=== PATIENT | female | born 1990 | race Caucasian/White ===

== ENCOUNTER 2020-10-25 08:02 | Emergency (ER) | payer OTHER, SELFPAY ==
--- NOTE | 2020-10-25 08:10 | ED.BACK ---
HPI - Back Pain/Injury General Chief Complaint: Back Pain/Injury Stated Complaint: BACK PAIN Time Seen by Provider: 10/25/20 08:10 Source: patient and RN notes reviewed Mode of arrival: ambulatory Limitations: no limitations History of Present Illness HPI Narrative: 30 yo female presents to the [facility] for right back pain for 1 week. Around the mid to lower scapula right side. No chest pain or shortness of breath. Denies fevers. Denies any injury. Pain is worse with movement. Denies any heavy pushing pulling or lifting. States that she has seen her chiropractor twice with no relief, states it actually made it worse. Has tried ibuprofen along with hot and cold packs with no relief. States the pain was 10 out of 10 last night while sleeping and woke her up out of her sleep felt like her muscle around her scapula was spasming. History of lower back pain. Denies any other chronic history. Denies surgical history Related Data Home Medications Medication Instructions Recorded Confirmed lactobacillus combination no.4 3 3,000 mmu cells PO DAILY 06/29/19 billion cell capsule Allergies Allergy/AdvReac Type Severity Reaction Status Date / Time No Known Allergies Allergy Mild Verified 09/07/19 13:40 Review of Systems Review of Systems: Narrative: CONSTITUTIONAL: Denies fever, chills, or sweats. CARDIOVASCULAR: Denies chest pain, palpitations, or edema. RESPIRATORY: Denies cough or dyspnea. SKIN: Denies rash or itching. MUSCULOSKELETAL: Reports right-sided lower scapula pain. Denies joint pain NEUROLOGIC: Denies headache, numbness, or weakness. PSYCHIATRIC: Denies anxiety or depression. All other systems reviewed are negative, except as documented in HPI. [facility] Past Medical History Medical History (Updated 10/25/20 @ 08:24 by Octavia Enamorado) History of PCOS Polycystic ovarian syndrome Vaginal discharge Surgical History Surgical History History of cholecystectomy [place] teeth removed Family History Family History Grandparent Family history of congestive heart failure Mother Hypertension, Onset Age: 49 Patient's mother is in good health Social History Social History Smoking status: Heavy tobacco smoker Second hand tobacco smoke exposure: Yes Alcohol intake: current Comments At the time of my signature, I reviewed and agree with the nursing past medical, surgical, social, and family history. There is no relevant family history pertinent to the patient complaint. Exam Narrative: Exam Narrative: GENERAL: This is a well-nourished, well-developed patient, in no apparent distress. HEAD: normocephalic, atraumatic. EYES: PERRL. Sclera clear/white. Vision is grossly intact. EARS: External ears normal NECK: Neck supple, non-tender. CARDIOVASCULAR: Regular rate and rhythm without murmurs, gallops, or rubs. RESPIRATORY: Clear to auscultation. Breath sounds equal bilaterally. No wheezes, rales, or rhonchi. NEURO: awake, alert, and oriented to person, place and time. There were no obvious focal neurologic abnormalities. EXTREMITIES: No joint tenderness, effusion, or edema noted. No calf tenderness. Negative Homans sign bilaterally. BACK: Nontender without deformity. No CVA tenderness. Point tenderness mid to lower scapula. Able to reproduce muscle spasming with rotation of the right arm. Has full range of motion. Walks with a normal gait. No numbness or tingling in extremities. No loss or retention of bowel or bladder. No neurologic deficits noted. Back/Spine/Pelvis: Back/spine/pelvis image: 1. Tenderness to palpation. Pain increases with anterior and lateral arm movements above 90 degrees. Course Vital Signs Vital signs: Vital Signs Temperature 96.6 F L 10/25/20 08:15 Pulse Rate 109 H 10/25/20 08:15 Respiratory Rate 16 10/25/20 08:1
[2020-10-25 08:15] VITALS: BP 145/87; PULSE 109; RESP 16; TEMP 35.9; O2SAT 100
== END 2020-10-25 08:31 | disposition home or self-care (01) ==
PROVIDERS: Emergency Provider Nurse Practitioner
DX: M62.830 Muscle spasm of back (principal); F17.200 Nicotine dependence, unspecified, uncomplicated; E28.2 Polycystic ovarian syndrome
CPT/HCPCS: 99213; G0463

== ENCOUNTER 2020-12-21 09:46 | Outpatient (CLI) | payer OTHER, SELFPAY ==
[2020-12-21 10:10] LABS: Basophils Percent Auto 0.4 % (0.2-1.2); Eosinophils Absolute Auto 0.2 K/mm3 (0-0.3); Eosinophils Percent Auto 1.8 % (0-4.4); Hematocrit 37.7 % (37.0-47.0); Hemoglobin 13.3 g/dL (12.0-15.0); Immature Granulocyte Absolute 0.05 K/mm3 (0.00-0.031); Immature Granulocyte Percent A 0.5 % (0-0.5); Lymphocytes Absolute Auto 2.57 K/mm3 (0.9-3.2); Lymphocytes Percent Auto 23.3 % (18.3-44.2); Mean Corpuscular HGB Conc 35.3 g/dl (32-36); Mean Corpuscular Hemoglobin 32.9 pg (26-34); Mean Corpuscular Volume 93.3 fl (80-100); Mean Platelet Volume 11.8 fl (7.4-10.4); Monocytes Absolute Auto 0.8 K/mm3 (0.1-0.6); Monocytes Percent Auto 7.3 % (2.6-8.5); Neutrophils Absolute Auto 7.4 K/mm3 (1.3-6.7); Neutrophils Percent Auto 66.7 % (45.5-73.1); Platelet Count Result 222 k/mm3 (150-375); Red Blood Count 4.04 M/mm3 (4.2-5.4); Red Cell Distribution Width 11.7 % (11.5-14.5)
[2020-12-21 10:54] LABS: Thyroid Stimulating Hormone 0.798 uIU/mL (0.465-4.680)
[2020-12-21 11:03] LABS: HIV 1/2 Ab P24 Ag Result Negative (Negative)
[2020-12-21 13:09] LABS: Hepatitis B Surface Antigen Negative (Negative)
[2020-12-21 13:25] LABS: Hepatitis C Virus Antibody Negative (Negative)
[2020-12-21 14:06] LABS: Vitamin D 25 Hydroxy 32.3 ng/mL
[2020-12-22 08:30] LABS: Rapid Plasma Reagin Non-Reactive (NonReactive)
[2020-12-26 18:43] LABS: Hemoglobin 13.1 g/dL (11.7-15.5); MCH 33.2 pg (27.0-33.0); RDW 13.2 % (11.0-15.0); Red Blood Cell Count 3.94 Mill/uL (3.80-5.10)
== END 2020-12-21 09:47 | disposition home or self-care (01) ==
LOC: ANHLAB 09:51
PROVIDERS: Visit Provider Student in an Organized Health Care Education/Training Program
DX: Z34.90 Encounter for supervision of normal pregnancy, unspecified, unspecified trimester (principal); Z3A.00 Weeks of gestation of pregnancy not specified
CPT/HCPCS: 36415; 82306; 83021; 84443; 85025; 86592; 86703; 86762; 86787; 86803; 86850; 86900; 86901; 87340; G0432

== ENCOUNTER 2021-04-21 09:26 | Outpatient (CLI) | payer OTHER, SELFPAY ==
[2021-04-21 11:43] LABS: Basophils Percent Auto 0.3 % (0.2-1.2); Eosinophils Absolute Auto 0.2 K/mm3 (0-0.3); Eosinophils Percent Auto 1.7 % (0-4.4); Hematocrit 35.4 % (37.0-47.0); Hemoglobin 12.1 g/dL (12.0-15.0); Immature Granulocyte Absolute 0.11 K/mm3 (0.00-0.031); Immature Granulocyte Percent A 0.9 % (0-0.5); Lymphocytes Absolute Auto 2.26 K/mm3 (0.9-3.2); Lymphocytes Percent Auto 18.6 % (18.3-44.2); Mean Corpuscular HGB Conc 34.2 g/dl (32-36); Mean Corpuscular Hemoglobin 32.4 pg (26-34); Mean Corpuscular Volume 94.7 fl (80-100); Mean Platelet Volume 12.3 fl (7.4-10.4); Monocytes Absolute Auto 0.6 K/mm3 (0.1-0.6); Monocytes Percent Auto 4.8 % (2.6-8.5); Neutrophils Percent Auto 73.7 % (45.5-73.1); Platelet Count Result 185 k/mm3 (150-375); Red Blood Count 3.74 M/mm3 (4.2-5.4); Red Cell Distribution Width 12.7 % (11.5-14.5); White Blood Count 12.2 K/mm3 (4.5-10.0)
[2021-04-21 12:12] LABS: Glucose 1 Hour PP 50gm Dose 226 mg/dL
== END 2021-04-21 09:27 | disposition home or self-care (01) ==
PROVIDERS: Visit Provider Student in an Organized Health Care Education/Training Program
DX: Z34.93 Encounter for supervision of normal pregnancy, unspecified, third trimester (principal); Z3A.27 27 weeks gestation of pregnancy
CPT/HCPCS: 36415; 82947; 85025

== ENCOUNTER 2021-05-05 11:01 | Outpatient (CLI) | payer OTHER, SELFPAY ==
[2021-05-05 12:00] LABS: Hematocrit 35.5 % (37.0-47.0); Hemoglobin 12.5 g/dL (12.0-15.0); Mean Corpuscular HGB Conc 35.2 g/dl (32-36); Mean Corpuscular Hemoglobin 33.1 pg (26-34); Mean Corpuscular Volume 93.9 fl (80-100); Mean Platelet Volume 12.1 fl (7.4-10.4); Platelet Count Result 199 k/mm3 (150-375); Red Blood Count 3.78 M/mm3 (4.2-5.4); Red Cell Distribution Width 12.9 % (11.5-14.5); White Blood Count 12.8 K/mm3 (4.5-10.0)
[2021-05-05 12:16] LABS: Alanine Aminotransferase 44 U/L (4-35); Albumin Level 4.3 g/dL (3.5-5.1); Alkaline Phosphatase 74 U/L (38-126); Anion Gap 13 mmol/L (8-16); Aspartate Amino Transferase 68 U/L (14-36); Bilirubin,Total 0.4 mg/dL (0.2-1.3); Blood Urea Nitrogen 11 mg/dL (7-17); Calcium 9.4 mg/dL (8.4-10.2); Carbon Dioxide 22 mmol/L (22-30); Chloride 101 mmol/L (98-107); Estimated Glomerular Filt Rate > 60; Glucose 137 mg/dL (65-110); Lactate Dehydrogenase 394 U/L (313-618); Potassium 3.6 mmol/L (3.4-5.0); Sodium 136 mmol/L (137-145); Uric Acid 6.8 mg/dL (2.5-7.5)
[2021-05-05 15:47] LABS: Total Volume 24 Hour Urine 3100 ml
[2021-05-05 15:48] LABS: Specific Gravity Ur 1.011; Total Volume 24 Hour Urine 3100 ml
[2021-05-05 15:56] LABS: Total Protein Urine 24 Hr 465 mg/24hr (28-141); Total Protein Urine Random 15 mg/dL
[2021-05-05 15:57] LABS: Creatinine 24 Hour Urine 1.3 gm/24 (0.8-1.8); Creatinine Urine 43.5 mg/dL
== END 2021-05-05 11:02 | disposition home or self-care (01) ==
PROVIDERS: Visit Provider Student in an Organized Health Care Education/Training Program
DX: O13.9 Gestational [pregnancy-induced] hypertension without significant proteinuria, unspecified trimester (principal); Z3A.00 Weeks of gestation of pregnancy not specified
CPT/HCPCS: 36415; 80053; 81050; 82570; 83615; 84156; 84550; 85027; 87086; 87088

== ENCOUNTER 2021-05-11 09:15 | Outpatient (RCR) | payer OTHER, SELFPAY ==
[2021-05-08 11:22] VITALS: BMI 36.3
[2021-05-08 11:23] VITALS: BMI 36.3
== END 2021-07-23 09:35 | disposition home or self-care (01) ==
LOC: ANHDMC 09:15
PROVIDERS: Visit Provider Student in an Organized Health Care Education/Training Program
DX: O24.419 Gestational diabetes mellitus in pregnancy, unspecified control (principal); Z3A.00 Weeks of gestation of pregnancy not specified; Z71.3 Dietary counseling and surveillance; Z71.89 Other specified counseling
CPT/HCPCS: 97802; G0108

== ENCOUNTER 2021-05-15 11:49 | Outpatient (CLI) | payer OTHER, SELFPAY ==
--- NOTE | ~2021-05-15 | US_ITS ---
US OB BPP wo non-stress DATE: 05/15/2021 13:00 INDICATION: Elevated blood pressure. Gestational diabetes mellitus. TECHNIQUE: Real-time imaging and Doppler analysis COMPARISON: None FINDINGS: Live single intrauterine gestation, fetus in longitudinal lie, vertex presentation. h eart rate of 182 bpm. Anterior placenta. BIOPHYSICAL PROFILE reported by tube test technician: breathin out of 2 movement: 2 out of 2 tone: 2 out of 2 Amniotic fluid pocket: 2 out of 2 Total score: 8 out of 8 IMPRESSION: Normal biophysical profile score of 8 out of 8 Reviewed, dictated and finalized at Location [facility]. Reviewed, dictated and finalized at location B.
[2021-05-15 12:10] VITALS: BP 127/78; PULSE 98
[2021-05-15 12:16] VITALS: BP 127/85; PULSE 96
[2021-05-15 12:31] VITALS: BP 117/64; PULSE 88
--- NOTE | 2021-05-15 12:32 | PC.NURSE ---
Pt here for lab work and BPP. Pt states she has been diagnosed with Gestational Diabetes and has had high blood pressure. To room 112 ambulatory, Lab work drawn and sent to lab. BPP ordred. ENRIQUETA and KADENO applied.
[2021-05-15 12:40] LABS: Basophils Percent Auto 0.3 % (0.2-1.2); Eosinophils Absolute Auto 0.2 K/mm3 (0-0.3); Eosinophils Percent Auto 1.2 % (0-4.4); Hemoglobin 12.3 g/dL (12.0-15.0); Immature Granulocyte Absolute 0.16 K/mm3 (0.00-0.031); Immature Granulocyte Percent A 1.1 % (0-0.5); Lymphocytes Percent Auto 17.7 % (18.3-44.2); Mean Corpuscular HGB Conc 34.2 g/dl (32-36); Mean Corpuscular Hemoglobin 31.9 pg (26-34); Mean Corpuscular Volume 93.5 fl (80-100); Mean Platelet Volume 12.7 fl (7.4-10.4); Monocytes Absolute Auto 1.1 K/mm3 (0.1-0.6); Monocytes Percent Auto 7.6 % (2.6-8.5); Neutrophils Absolute Auto 10.6 K/mm3 (1.3-6.7); Neutrophils Percent Auto 72.1 % (45.5-73.1); Platelet Count Result 214 k/mm3 (150-375); Red Blood Count 3.85 M/mm3 (4.2-5.4); Red Cell Distribution Width 12.6 % (11.5-14.5); White Blood Count 14.7 K/mm3 (4.5-10.0)
--- NOTE | 2021-05-15 12:40 | PC.NURSE ---
To ultrasound per wheelchair.
[2021-05-15 12:52] LABS: Creatinine Urine 82.9 mg/dL; Total Protein Urine Random 6 mg/dL; Ur Ttl Prot Creatinine Ratio 0.07 mg/mg (0-0.20)
[2021-05-15 12:53] LABS: Add Urine Microscopic? YES; Appearance Urine Clear (Clear); Bacteria Urine Trace /hpf; Bilirubin Urine Negative (Negative); Blood Urine Negative (Negative); Color Urine Yellow (Yellow); Glucose Urine UA Negative (Negative); Ketones Urine Negative (Negative); Leukocyte Esterase Ur Negative LEU/UL (NEGATIVE); Mucus Urine Rare /lpf; Nitrate Urine Negative (Negative); Protein Urine 1+ mg/dL (Negative); RBC Urine 0-2 /hpf (0-2); Specific Grav Ur 1.023 (1.001-1.035); Squamous Epithelial Cell Urine Many /hpf (Few); Urobilinogen Urine Negative mg/dL (<2.0)
[2021-05-15 13:05] LABS: Alanine Aminotransferase 41 U/L (4-35); Albumin Level 4.3 g/dL (3.5-5.1); Alkaline Phosphatase 81 U/L (38-126); Anion Gap 10 mmol/L (8-16); Aspartate Amino Transferase 50 U/L (14-36); Bilirubin,Total 0.3 mg/dL (0.2-1.3); Blood Urea Nitrogen 9 mg/dL (7-17); Calcium 9.2 mg/dL (8.4-10.2); Carbon Dioxide 22 mmol/L (22-30); Chloride 104 mmol/L (98-107); Estimated Glomerular Filt Rate > 60; Glucose 64 mg/dL (65-110); Potassium 4.1 mmol/L (3.4-5.0); Sodium 136 mmol/L (137-145); Uric Acid 5.5 mg/dL (2.5-7.5)
[2021-05-15 13:11] VITALS: BP 133/80; PULSE 99
[2021-05-15 13:16] VITALS: BP 110/65; PULSE 97
[2021-05-15 13:30] VITALS: BP 110/65; PULSE 88
== END 2021-05-15 13:40 | disposition home or self-care (01) ==
LOC: ANHOBOP 11:55 → ANHOBPP 11:59
PROVIDERS: Visit Provider Student in an Organized Health Care Education/Training Program
DX: O13.9 Gestational [pregnancy-induced] hypertension without significant proteinuria, unspecified trimester (principal); Z3A.00 Weeks of gestation of pregnancy not specified
CPT/HCPCS: 36415; 59025; 76819; 80053; 81001; 82570; 84156; 84550; 85025; 87086; 87088; 99199

== ENCOUNTER 2021-12-07 01:38 | Day surgery (SDC) | payer OTHER, SELFPAY ==
[2021-11-30 15:03] VITALS: BMI 35.7
--- NOTE | 2021-11-30 15:26 | PC.NURSE ---
Report to the Outpatient Waiting Room, entrance under the green pavilion located off [facility], at time 0730_ on date 12/07/21 . OR Time: 0930 . - You and your visitor will be asked a series of questions to screen for COVID 19 for your protection. - Only one visitor is allowed at this time. - The patient visitor is requested to leave or wait in car when not with patient. - A mask is required within the hospital. Patients may have clear liquids (water, carbonated beverages, clear teas, apple juice) until 3 hours prior to surgery with a maximum of 20 ounces. - No food from midnight until time of surgery - Take the following medications with a SIP of water the morning of surgery: __N/A Medications to discontinue per physician N/A Date to take last dose N/A Please no make-up, nail wolof, hairspray, perfume, deodorant, or body powder the day of surgery. No jewelry (including any body piercings) or valuables the day of surgery, leave them at home. Please take a shower or bath the night before, or the morning of, surgery with an antibacterial soap. Wear comfortable, loose fitting clothing. Children are encouraged to wear pajamas. - Jewelry must be removed prior to entering the operating room. Rings and piercings that are not removed may be cut off. - The hospital will not accept responsibility for valuables. - Please leave all valuables, including medications, at home the day of surgery. If you are going home after surgery, a licensed concrete mixing truck driver must drive you home. - NO public transportation without another adult. - We recommend that an adult stay with you for 24 hours following discharge. - We also recommend that you do not drive, make important decision, drink alcoholic beverages, or take any drugs that were not prescribed by your health care provider for at least 24 hours after your discharge time. For Pediatric surgeries, we recommend two adults accompany the child home (only one inside the building at this time). Follow any additional instructions given to you from your surgeon. If you or anyone in your household have experienced Covid symptoms in the past week, please notify your surgeon or the nurse liaison at the phone number below for possible testing. Telephone instructions given to KRISTOPHERNancyand asked if any additional questions and then verbalized understanding. Patient advised to call surgeon office or pre surgery nurse liaison [phone] if any additional questions.
--- NOTE | 2021-12-06 16:49 | WPDANESEPPF ---
Anes - Initial Pre Proc Eval Procedure: Operation Date: 12/07/21 11:00 Proposed Procedures p Loop Electrical Excision Procedure - Gris Wilhelm MD Date/Time: 12/06/21 16:49 Surgeon: Gris Wilhelm MD Pre Op Diagnosis: low grade LUZMARIA Patient Data Age: 31 Gender: F Height: 1.78 m Weight: 113 kg Allergies Allergy/AdvReac Type Severity Reaction Status Date / Time No Known Allergies Allergy Mild Verified 12/07/21 10:22 Home Medications Medication Instructions Recorded Confirmed Type No Home Medications 11/30/21 12/07/21 History Patient hx anesthesia problems: none Family hx anesthesia problems: none Results Review: All pre-operative results and documents have been reviewed as part of the pre-operative evaluation. [facility] Past Medical History Medical History Abnormal Pap smear of cervix 11/07/20, LGSIL History of gestational diabetes History of PCOS Obesity Polycystic ovarian syndrome Preeclampsia Vaginal discharge Surgical History Surgical History H/O emergency section 05/23/21 for severe pre eclampia, Gest DM and cord prolapse. History of cholecystectomy [place] teeth removed Family History Family History Grandparent Family history of congestive heart failure Mother Hypertension, Onset Age: 49 Patient's mother is in good health Social History Social History Smoking status: Never smoker Second hand tobacco smoke exposure: Yes Alcohol intake: never Substance use: unknown Substance use type: does not use Living arrangements: with family Spiritual care concerns: No Anes - Eval Final PreProcedure Day of Procedure 12/06/21 16:49 Patient weight: obese Heart: regular rate and rhythm Lungs: clear to auscultation and normal air movement Airway: Mallampati scale class II Neurological: alert and oriented Last oral intake: >/= 8 hours ASA classification: II Emergent: no Anesthetic plan: proceed Anesthesia type and monitoring: general GIVS and LMA Results Review: All pre-operative results and documents have been reviewed as part of the pre-operative evaluation. Informed Consent: The patient's anesthetic plan and its attendant risks and benefits were discussed with the patient/family/POA. Questions were solicited and answers provided to the satisfaction of the patient/family/POA.
--- NOTE | 2021-12-06 17:38 | PM.IMHP ---
H&P: HPI History of Present Illness Date/Time: 12/06/21 17:38 Patient is a 31yo woman with a long history of abnormal pap smears and cervical dysplasia since 2012. She had had numerous colposcopies and biopsies performed in the past. In an effort to excise persistently abnormal cervical cells, discussion had with patient regarding performing a LEEP. Patient would like to proceed with this procedure. In general, she reports feeling well today without complaints. Chief Complaint: Persistent cervical dysplasia Review of Systems Review of Systems: All systems reviewed & are unremarkable except as noted in HPI and below Constitutional: Constitutional: Reports as per HPI, Reports no additional constitutional complaints, Denies chills, Denies fever(s), Denies headache(s) and Denies night sweats Eyes: Eyes: Reports as per HPI and Reports no additional eye complaints ENT: Reports system reviewed and no additional complaints, except as documented, Reports as per HPI, Reports Normal hearing present and Denies headache(s) Cardiovascular: Cardiovascular: Reports as per HPI, Reports no additional cardiovascular complaints, Denies chest pain and Denies dyspnea Respiratory: Respiratory: Reports as per HPI, Reports no additional respiratory complaints, Denies cough and Denies dyspnea Gastrointestinal: Gastrointestinal: Reports as per HPI, Reports no additional gastrointestinal complaints, Denies abdominal pain, Denies change in bowel habits, Denies change in stool character, Denies nausea and Denies vomiting Genitourinary: Genitourinary: Reports no additional female genitourinary complaints, Reports as per HPI, Denies abnormal vaginal bleeding, Denies genital lesions, Denies hot flashes, Denies dyspareunia, Denies pelvic pain, Denies sexual dysfunction, Denies urinary incontinence, Denies vaginal discharge, Denies vaginal dryness and Denies vaginal odor Musculoskeletal: Musculoskeletal: Reports no additional musculoskeletal complaints and Reports as per HPI Integumentary/Breasts: Skin/Breast: Reports system reviewed and no additional complaints, except as docu, Reports as per HPI, Denies breast pain and Denies nipple discharge Neurologic: Reports system reviewed and no additional complaints, except as documented, Reports as per HPI, Reports Normal hearing present and Denies headache(s) Psychiatric: Psychiatric: Reports no additional psychiatric complaints, Reports as per HPI, Denies anxiety and Denies depression Endocrine: Endocrine: Reports no additional endocrine complaints and Reports as per HPI Hematologic/Lymphatic: Hematologic/Lymphatic: Reports no additional hematologic/lymphatic complaints and Reports as per HPI Allergic/Immunologic: Allergic/Immunologic: Reports no additional allergic/immunologic complaints and Reports as per HPI PMFSH Past Medical History Medical History Abnormal Pap smear of cervix 11/07/20, LGSIL History of gestational diabetes History of PCOS Obesity Polycystic ovarian syndrome Preeclampsia Vaginal discharge Surgical History Surgical History H/O emergency section 05/23/21 for severe pre eclampia, Gest DM and cord prolapse. History of cholecystectomy [place] teeth removed Family History Family History Grandparent Family history of congestive heart failure Mother Hypertension, Onset Age: 49 Patient's mother is in good health Social History Social History Smoking status: Never smoker Second hand tobacco smoke exposure: Yes Alcohol intake: never Substance use: unknown Substance use type: does not use Spiritual care concerns: No Meds Home Medications and Allergies Home Medications Medication Instructions Recorded Confirmed Type No Home Medications 11/30/21 11/30/21 History
[2021-12-07 09:21] VITALS: BP 127/90; PULSE 89; RESP 18; TEMP 36.5; O2SAT 99
[2021-12-07] MEDS: LACTATED RINGERS 1,000 ML 30 ML IV CONT (09:52)
[2021-12-07] MEDS: ACETAMINOPHEN 500 MG TABLET 1000 MG PO (09:52)
--- NOTE | 2021-12-07 10:26 | WPDHPUPDATE1 ---
History and Physical Update Update Date/Time: 12/07/21 10:26 History and Physical has been reviewed, including an updated exam of the patient. There are NO changes in the patient's condition. Risks, benefits, and alternatives have been discussed and questions answered. Patient agrees to proceed with procedure.
[2021-12-07] MEDS: LIDOCAINE HCL 1% LOCAL INJ 20 ML VIAL 10 ML INFILTRATE (10:48)
[2021-12-07] MEDS: IODINE/POTASSIUM IODIDE 8 ML SOLUTION TOPICAL (10:49)
--- NOTE | 2021-12-07 11:10 | P.OP_ITS ---
Procedure Note - Detailed Date of Procedure 12/07/21 Pre-op Diagnosis low grade LUZMARIA Post-op Diagnosis Same Procedure Performed Loop electrosurgical excision procedure Surgeon Gris Wilhelm MD Anesthesia MAC Findings narrow area of non-uptake noted circumferentially around cervix Description of Procedure The patient was taken to the operating room where she self-transferred to the operating room table. She was placed in dorsal supine position. Anesthesia was a dministered and found to be adequate. The patient was repositioned in dorsal lithotomy position and prepped and draped in the usual sterile fashion. A coated bivalve speculum was inserted into the vagina and suction tubing was connected to the speculum. The cervix was well visualized. A paracervical block was performed with 1% lidocaine. 5 cc of lidocaine was administered on both sides for a total of 10 cc. Lugol's solution was applied across the entire surface of the cervix. A narrow area of non-uptake was noted circumferentially around the cervix. A large loop was selected and connected to the electrical generator. This loop was used to make one pass across the cervix, excising a portion of the anterior surface of the cervix. The specimen was removed and set aside. An endocervical curettage was performed. Rollerball cautery was used to cauterize the entire excision site and margins of the excision bed. Excellent hemostasis was noted. The procedure was deemed complete. The vagina was dried and the speculum was removed. The specimen was tagged with a suture and prepared to be sent to pathology for analysis. The patient was cleansed and dried. She was taken out of the dorsal lithotomy position and awakened from anesthesia without difficulty. She was transported to the recovery room in stable condition. All sponge and instrument counts were correct at the end of the procedure. Estimated Blood Loss 5 IV Fluids 700 Drains No Packing No Pathology Yes (endocervical curettings, anterior portion of cervix tagged at 12:00) Complications No immediate complications Condition Stable Disposition Same day [facility] Billing Surgery - Charge Forward: Surgery Billing
[2021-12-07 11:15] VITALS: BP 125/75; PULSE 93; RESP 16; O2SAT 100
[2021-12-07 11:35] VITALS: BP 117/87; PULSE 77; RESP 16
[2021-12-07] MEDS: oxyCODONE HCL (*CRX) 5 MG TAB IR PO (11:44)
== END 2021-12-07 12:35 | disposition home or self-care (01) ==
PROVIDERS: Visit Provider Student in an Organized Health Care Education/Training Program
PROC: 0UBC7ZZ Excision of Cervix, Via Natural or Artificial Opening (ICD-10-PCS; CPT 57522; principal; 2021-12-07 11:00)
DX: N87.0 Mild cervical dysplasia (principal); E28.2 Polycystic ovarian syndrome; E66.9 Obesity, unspecified; Z68.36 Body mass index [BMI] 36.0-36.9, adult
CPT/HCPCS: 57522; 88305; 88307; A9270; J1100; J2250; J2405; J2704; J3010; J7120

== ENCOUNTER 2022-05-25 17:37 | Emergency (ER) | payer OTHER, SELFPAY ==
--- NOTE | ~2022-05-25 | CT_ITS ---
EXAMINATION: CT abdomen pelvis w con DATE: 05/25/2022 19:00 INDICATION: Flank pain and right abdominal pain. Nausea, vomiting and diarrhea. TECHNIQUE: Computed tomography (CT) of the abdomen and pelvis was performed with 100 mL Omnipaque-350 intravenous contrast. Automated exposure control and iterative reconstruction technique were employe d. The dose-length product was 1008.71 mGy-cm. COMPARISON: 11/28/2012 FINDINGS: Lung bases are clear. There is a large inferior heart is normal. No pericardial or pleural effusion. Diffuse hepatic steatosis. Cholecystectomy clips the gallbladder fossa. Spleen, pancreas, bilateral a drenal glands and kidneys are normal. There is mild colonic diverticulosis with a sigmoid predominanc e. There is no adjacent inflammatory change to suggest diverticulitis. Small bowel and appendix are n ormal. Bladder, anteverted uterus and bilateral adnexa are normal. No free intraperitoneal gas or flu id. No pathologically enlarged abdominal or pelvic lymphadenopathy. Osteitis condensans ilii. Very sm all fat-containing umbilical hernia. IMPRESSION: 1. No acute intra-abdominal/pelvic process. Reviewed, dictated and finalized at location A.
[2022-05-25 17:38] VITALS: BP 148/103; PULSE 96; RESP 18; TEMP 36.1; O2SAT 98
[2022-05-25 17:57] LABS: Basophils Percent Auto 0.5 % (0.2-1.2); Eosinophils Absolute Auto 0.4 K/mm3 (0-0.3); Eosinophils Percent Auto 4.5 % (0-4.4); Hematocrit 41.3 % (37.0-47.0); Hemoglobin 14.4 g/dL (12.0-15.0); Immature Granulocyte Absolute 0.03 K/mm3 (0.00-0.031); Immature Granulocyte Percent A 0.4 % (0-0.5); Lymphocytes Absolute Auto 3.16 K/mm3 (0.9-3.2); Lymphocytes Percent Auto 38.5 % (18.3-44.2); Mean Corpuscular HGB Conc 34.9 g/dl (32-36); Mean Corpuscular Hemoglobin 32.1 pg (26-34); Mean Platelet Volume 12.1 fl (7.4-10.4); Monocytes Absolute Auto 0.6 K/mm3 (0.1-0.6); Monocytes Percent Auto 7.6 % (2.6-8.5); Neutrophils Percent Auto 48.5 % (45.5-73.1); Platelet Count Result 243 k/mm3 (150-375); Red Blood Count 4.49 M/mm3 (4.2-5.4); Red Cell Distribution Width 11.7 % (11.5-14.5); White Blood Count 8.2 K/mm3 (4.5-10.0)
[2022-05-25 18:08] LABS: Alanine Aminotransferase 49 U/L (6-35); Albumin Level 4.5 g/dL (3.5-5.1); Alkaline Phosphatase 91 U/L (38-126); Anion Gap 16 mmol/L (8-16); Aspartate Amino Transferase 36 U/L (14-36); Bilirubin,Total 0.5 mg/dL (0.2-1.3); Blood Urea Nitrogen 13 mg/dL (7-17); Calcium 8.9 mg/dL (8.4-10.2); Carbon Dioxide 26 mmol/L (22-30); Chloride 101 mmol/L (98-107); Estimated CRCL calculation 94 ml/min; Estimated Glomerular Filt Rate > 60; Glucose 123 mg/dL (65-110); Lipase 111 U/L (23-300); Potassium 3.5 mmol/L (3.4-5.0); Sodium 143 mmol/L (137-145)
--- NOTE | 2022-05-25 18:11 | ED.ABDPAIN ---
HPI - Abdominal Pain General Chief Complaint: Abdominal Pain <SUMMER Vargas Last Filed: 05/25/22 21:27> Stated Complaint: abdominal pain <SUMMER Vargas Last Filed: 05/25/22 21:27> Time Seen by Provider: 05/25/22 17:51 <SUMMER Vargas Last Filed: 05/25/22 21:27> Source: patient <SUMMER Vargas Last Filed: 05/25/22 21:27> Mode of arrival: ambulatory <SUMMER Vargas Last Filed: 05/25/22 21:27> Limitations: no limitations <SUMMER Vargas Last Filed: 05/25/22 21:27> History of Present Illness HPI narrative: Patient is a 32-year-old female who presents the ED with report of R sided abdominal pain. She reports she has felt unwell over the last couple days, with nausea, vomiting, diarrhea, lightheadedness, decreased appetite. She assumed it was just a GI bug. Today around 4 PM, she developed severe pain in her R side/flank/abdomen. She then decided to come to the ED. Pain still present currently, but less severe. She has not tried anything for the pain. Denies any fever, hematemesis, rectal bleeding, dysuria, hematuria, CP, SOB. <SUMMER Vargas Last Filed: 05/25/22 21:27> Related Data Allergies/Adverse Reactions: Allergies Allergy/AdvReac Type Severity Reaction Status Date / Time No Known Allergies Allergy Mild Verified 12/07/21 10:22 <SUMMER Vargas Last Filed: 05/25/22 21:27> Review of Systems Review of Systems: CONSTITUTIONAL: Denies fever, chills, or sweats. CARDIOVASCULAR: Denies chest pain. RESPIRATORY: Denies dyspnea. GASTROINTESTINAL: Reports R sided ABD pain, N/V/D. Denies constipation, rectal bleeding, hematemesis. GENITOURINARY: Denies dysuria or hematuria. MUSCULOSKELETAL: Reports pain in R side/flank. NEUROLOGIC: Reports lightheadedness. Denies syncope, headache, numbness, or weakness. <Adrianna Mitchell PA-C - Last Filed: 05/25/22 21:27> All systems reviewed & are unremarkable except as noted in HPI and below <Adrianna Mitchell PA-C - Last Filed: 05/25/22 21:27> [facility] Past Medical History Medical History: Medical History Abnormal Pap smear of cervix 11/07/20, LGSIL History of gestational diabetes History of PCOS Obesity Polycystic ovarian syndrome Preeclampsia Vaginal discharge <Adrianna Mitchell PA-C - Last Filed: 05/25/22 21:27> Surgical History Surgical History: Surgical History H/O emergency section 05/23/21 for severe pre eclampia, Gest DM and cord prolapse. History of cholecystectomy [place] teeth removed <Adrianna Mitchell PA-C - Last Filed: 05/25/22 21:27> Family History Family History: Family History Grandparent Family history of congestive heart failure Mother Hypertension, Onset Age: 49 Patient's mother is in good health <Adrianna Mitchell PA-C - Last Filed: 05/25/22 21:27> Social History Social History: Social History Smoking status: Never smoker Second hand tobacco smoke exposure: Yes Alcohol intake: never Substance use: unknown Substance use type: does not use Spiritual care concerns: No <Adrianna Mitchell PA-C - Last Filed: 05/25/22 21:27> Exam Narrative: GENERAL: Well appearing, obese, non-toxic, in no acute distress. HEAD: Normocephalic, atraumatic. NECK: Supple. No adenopathy, no masses. RESPIRATORY: Airway patent, respirations nonlabored. Clear to auscultation bilaterally, no rales, rhonchi, wheezing. CARDIOVASCULAR: Regular rate and rhythm without murmurs, rubs, or gallops. Peripheral pulses 2+ and equal bilaterally. ABDOMINAL: Soft, no significant tenderness throughout abdomen. Nondistended, no hepatosplenomegaly. N
[2022-05-25 18:24] LABS: Basophils Percent Auto 0.5 % (0.2-1.2); Eosinophils Absolute Auto 0.4 K/mm3 (0-0.3); Eosinophils Percent Auto 4.7 % (0-4.4); Hematocrit 41.1 % (37.0-47.0); Hemoglobin 14.3 g/dL (12.0-15.0); Immature Granulocyte Absolute 0.03 K/mm3 (0.00-0.031); Immature Granulocyte Percent A 0.4 % (0-0.5); Lymphocytes Absolute Auto 3.22 K/mm3 (0.9-3.2); Lymphocytes Percent Auto 38.8 % (18.3-44.2); Mean Corpuscular HGB Conc 34.8 g/dl (32-36); Mean Corpuscular Hemoglobin 32.1 pg (26-34); Mean Corpuscular Volume 92.2 fl (80-100); Mean Platelet Volume 11.9 fl (7.4-10.4); Monocytes Absolute Auto 0.7 K/mm3 (0.1-0.6); Monocytes Percent Auto 8.2 % (2.6-8.5); Neutrophils Absolute Auto 3.9 K/mm3 (1.3-6.7); Neutrophils Percent Auto 47.4 % (45.5-73.1); Platelet Count Result 224 k/mm3 (150-375); Red Blood Count 4.46 M/mm3 (4.2-5.4); Red Cell Distribution Width 11.6 % (11.5-14.5); White Blood Count 8.3 K/mm3 (4.5-10.0)
[2022-05-25 18:34] LABS: Alanine Aminotransferase 48 U/L (6-35); Albumin Level 4.3 g/dL (3.5-5.1); Alkaline Phosphatase 93 U/L (38-126); Anion Gap 12 mmol/L (8-16); Aspartate Amino Transferase 38 U/L (14-36); Bilirubin,Total 0.4 mg/dL (0.2-1.3); Blood Urea Nitrogen 14 mg/dL (7-17); Calcium 8.8 mg/dL (8.4-10.2); Carbon Dioxide 26 mmol/L (22-30); Chloride 103 mmol/L (98-107); Estimated CRCL calculation 86 ml/min; Estimated Glomerular Filt Rate 58; Glucose 119 mg/dL (65-110); Lipase 108 U/L (23-300); Potassium 3.5 mmol/L (3.4-5.0); Sodium 141 mmol/L (137-145)
[2022-05-25 18:34] LABS: Add Urine Microscopic? YES; Appearance Urine Cloudy (Clear); Bacteria Urine Trace /hpf; Bilirubin Urine Negative (Negative); Blood Urine Negative (Negative); Color Urine Yellow (Yellow); Glucose Urine UA Negative (Negative); Ketones Urine Trace mg/dL (Negative); Leukocyte Esterase Ur Trace LEU/UL (Negative); Mucus Urine Rare /lpf; Nitrate Urine Negative (Negative); Protein Urine Negative (Negative); Squamous Epithelial Cell Urine Many /hpf (Few); Urobilinogen Urine Negative mg/dL (<2.0); WBC Urine 0-3 /hpf
[2022-05-25 18:35] LABS: Specific Grav Ur 1.031 (1.001-1.035)
[2022-05-25] MEDS: ONDANSETRON INJ 4 MG/2 ML VIAL IV PUSH (19:02)
[2022-05-25] MEDS: SODIUM CHLORIDE 0.9% IV 1,000 ML 999 ML IV CONT (19:03)
[2022-05-25 20:26] VITALS: BP 122/81; BP 127/85; PULSE 65; PULSE 74
[2022-05-25 20:28] VITALS: BP 117/90; PULSE 78
== END 2022-05-25 21:00 | disposition home or self-care (01) ==
PROVIDERS: Emergency Medicine; Physician Assistant; Emergency Provider Emergency Medicine
DX: K52.9 Noninfective gastroenteritis and colitis, unspecified (principal); E28.2 Polycystic ovarian syndrome; E66.9 Obesity, unspecified; Z68.33 Body mass index [BMI] 33.0-33.9, adult
CPT/HCPCS: 36415; 74177; 80053; 81001; 81025; 83690; 85025; 96365; 96366; 96375; 99284; J0131; J2405; J7030; Q9967

== ENCOUNTER 2023-07-21 15:41 | Outpatient (CLI) | payer OTHER, SELFPAY ==
[2023-07-26 08:40] LABS: FSH 5.5 mIU/mL (***)
[2023-07-26 13:12] LABS: Testosterone Free 4.4 pg/mL (0.2-5.0); Testosterone Total 31 ng/dL (2-45)
[2023-07-27 06:22] LABS: LH 4.3 mIU/mL (***)
== END 2023-07-21 15:42 | disposition home or self-care (01) ==
LOC: ANHLAB 15:42
PROVIDERS: PCP Nurse Practitioner Family; Visit Provider Registered Nurse
DX: E28.2 Polycystic ovarian syndrome (principal)
CPT/HCPCS: 36415; 83001; 83002; 84146; 84402; 84403

== ENCOUNTER 2024-09-14 10:09 | Emergency (ER) | payer OTHER, SELFPAY ==
[2024-09-14 10:26] VITALS: BP 132/86; PULSE 114; RESP 16; TEMP 36.6; O2SAT 98
--- NOTE | 2024-09-14 10:36 | ED_ITS ---
HPI - URI/Sore Throat General Chief Complaint: Upper Respiratory Infection Stated Complaint: Flu Symptoms Source: patient and RN notes reviewed Mode of arrival: ambulatory Limitations: no limitations History of Present Illness HPI Narrative: Patient is a 34-year-old female who presents to the [facility] with multiple complaints. Patient states that she has had body aches, nasal congestion, and cough since Friday. She endorses a frequent nonproductive cough. States that she has shortness of breath that accompanies her cough but is not present this time. She denies chest pain. Patient unsure fever but reports sweats and chills. Patient states that her son and are sick with similar symptoms. Related Data Allergies Allergy/AdvReac Type Severity Reaction Status Date / Time No Known Allergies Allergy Mild Verified 09/14/24 10:19 Review of Systems Review of Systems: CONSTITUTIONAL: Reports chills and sweats. EYES: Denies visual changes, redness, or discharge. ENT: Denies otalgia and sore throat. Reports congestion. CARDIOVASCULAR: Denies chest pain, palpitations, or edema. RESPIRATORY: Reports cough but denies dyspnea. GASTROINTESTINAL: Denies abdominal pain, nausea, vomiting, or diarrhea. GENITOURINARY: Denies dysuria or hematuria. SKIN: Denies rash or itching. MUSCULOSKELETAL: Denies back pain, joint pain, but reports myalgia. NEUROLOGIC: Reports headache but denies numbness or weakness. Pertinent positives per HPI. [facility] Past Medical History Medical History Thyroid disorder Pre-hypertension Personal history of nicotine dependence Hair loss disorder Essential hypertension Amenorrhea, unspecified (05/13/17) Multinodular goiter Chronic fatigue Obesity History of gestational diabetes Preeclampsia Abnormal Pap smear of cervix 11/07/20, LGSIL Polycystic ovarian syndrome Vaginal discharge History of PCOS Surgical History Surgical History H/O LEEP H/O emergency section 05/23/21 for severe pre eclampia, Gest DM and cord prolapse. History of cholecystectomy [place] teeth removed Family History Family History Grandparent Family history of congestive heart failure Mother Hypertension, Onset Age: 49 Social History Social History Smoking packs per day: 0 Smoking cigarettes per day: 0.0 Years smoked: 0 Smoking pack-years: 0.00 Smoking status: Former smoker Tobacco type: e-cigarettes/vaping Second hand tobacco smoke exposure: Yes Alcohol intake: never Substance use: never Substance use type: does not use Do You Feel Safe in your Home?: Yes Lack of Transportation: No Lack of Food: Never True Current Housing: I Have Housing Concerned About Future Housing: No Difficulty Paying Gas/Electric Bills: No Difficulty Paying for Meds: No Currently Unemployed: No Education: Bachelor's Degree Difficulty w/ Childcare or Family Care: No Living arrangements: with family Occupation/Education: occupation Gender identity (if verbalized by the patient): Female Sexual Orientation (if Verbalized by the Patient): Straight or Heterosexual Spiritual care concerns: No Agree to blood products: Yes Comments At the time of my signature, I reviewed and agree with the nursing past medical, surgical, social, and family history. There is no relevant family history pertinent to the patient complaint. Exam Narrative: GENERAL: This is a well-nourished, well-developed patient, in no apparent distress. HEAD: normocephalic, atraumatic. EYES: PERRL. Sclera clear/white. Vision is grossly intact. EARS: External ears normal, auditory canals clear and without drainage, TMs normal without perforation. Hearing grossly intact. NOSE: External nose normal with no obvious nasal discharge, nares without redness, no rhinorrhea. THROAT: Mucous membranes moist, posterior pharynx clear. NECK: Neck supple, non-tender without lymphadenopathy, masses or thyromegaly. CARDIOVASCULAR: Regular rate and rhythm without murmurs, gallops, or rubs. RESPIRATORY: Clear to auscultation. Breath sounds equal bilaterally. No wheezes, rales, or rhonchi. GASTROINTESTINAL: Abdomen soft, non-tender, nondistended. Bowel sounds are active. No hepato-splenomegaly, or palpable masses. No guarding. SKIN: warm, intact with no suspicious lesions or rash, good texture and turgor. NEURO: awake, alert, and oriented to person, place and time. There were no obvious focal neurologic abnormalities. EXTREMITIES: No clubbing, cyanosis, or edema. No joint tenderness, effusion, or edema noted. BACK: Nontender without deformity or crepitance. No flank tenderness. Course Course Level of Care: Express Care Visit Vital Signs Vital signs: Vital Signs Temperature 97.8 F 09/14/24 10:26 Pulse Rate 114 H 09/14/24 10:26 Respiratory Rate 16 09/14/24 10:26 Blood Pressure 132/86 09/14/24 10:26 Pulse Oximetry 98 09/14/24 10:26 Temperature 97.8 F 09/14/24 10:26 Pulse Rate 114 H 09/14/24 10:26 Respiratory Rate 16 09/14/24 10:26 Blood Pressure 132/86 09/14/24 10:26 Pulse Oximetry 98 09/14/24 10:26 Reviewed MDM - URI/Sore Throat MDM Narrative Medical decision making narrative: Viral illness may last between 7-21 days; antibiotics do not cure viral illness and are NOT recommended at this time. Also, recommend symptomatic treatment includes: rest, fluids, and increase humidity of the air at home. Recommend Acetaminophen as directed on the bottle to reduce fever, pain, headache. Please schedule a follow-up visit with your personal physician for further evaluation and treatment within 3-5days. If your symptoms persist, change or worsen significantly before you can contact your personal physician then please, without delay, go to the emergency department for further evaluation. Differential Diagnosis Differential diagnosis: Likely upper respiratory infection, viral infection, influenza and other (covid) Lab Data Attestation: I reviewed the patient's lab results. Labs: Lab Results 09/14/24 Range/Units 10:45 POC Influenza A Ag Negative (Negative) POC Influenza B Ag Negative (Negative) POC SARS CoV-2 Ag Negative (Negative) Critical Care Time Critical Care Time Critical Care Time: No Discharge Plan Discharge Clinical Impression: Viral illness Patient Disposition: Home, Self-Care Condition: Stable Instructions: Viral Syndrome (ED) Additional Instructions: Viral illness may last between 7-21 days; antibiotics do not cure viral illness and are NOT recommended at this time. Also, recommend symptomatic treatment includes: rest, fluids, and increase humidity of the air at home. Recommend Acetaminophen as directed on the bottle to reduce fever, pain, headache. Please schedule a follow-up visit with your personal physician for further evaluation and treatment within 3-5days. If your symptoms persist, change or worsen significantly before you can contact your personal physician then please, without delay, go to the emergency department for further evaluation. Patient Language: Egyptian Prescriptions: New albuterol sulfate [Ventolin HFA] 90 mcg/actuation HFA aerosol inhaler 1 puff inhalation QID PRN (Reason: shortness of breath or wheezing) Qty: 8.5 0RF No Action metformin 500 mg tablet extended release 24 hr 500 mg PO DAILY Qty: 90 3RF norethindrone (contraceptive) [Ruma] 0.35 mg tablet 0.35 mg PO DAILY Qty: 84 4RF spironolactone 100 mg tablet 100 mg PO DAILY Qty: 90 3RF escitalopram oxalate 5 mg tablet See Rx Instructions .ROUTE .COMPLEX Qty: 90 1RF Dose Instruction: TAKE ONE TABLET (5MG) BY MOUTH ONCE DAILY Rx Instructions: TAKE ONE TABLET (5MG) BY MOUTH ONCE DAILY Follow-up/Referrals: PHYSICIAN,PODIATRIC MEDICINE DOCTOR [Primary Care Provider] - Time of Disposition: 10:46
[2024-09-14 10:47] LABS: EDCOVIDSCREEN Negative (Negative); EDINFLUASCREEN Negative (Negative); EDINFLUBSCREEN Negative (Negative)
== END 2024-09-14 10:55 | disposition home or self-care (01) ==
PROVIDERS: Emergency Provider Nurse Practitioner
DX: B34.9 Viral infection, unspecified (principal); Z87.891 Personal history of nicotine dependence; Z20.822 Contact with and (suspected) exposure to COVID-19
CPT/HCPCS: 87426; 87804; 99213; G0463

== ENCOUNTER 2024-11-23 08:02 | Outpatient (CLI) | payer OTHER, SELFPAY ==
--- NOTE | ~2024-11-23 | US_ITS ---
EXAMINATION: US thyroid DATE: 11/23/2024 08:15 INDICATION: Goiter TECHNIQUE: Multiple ultrasound images of the thyroid were obtained. COMPARISON: None. FINDINGS: The right thyroid lobe measures 4.0 x 1.8 x 2.3 cm. The left thyroid lobe measures 8.0 x 4.6 x 6.1 c m. 7.6 cm predominantly solid isoechoic nodule in the inferior left thyroid with smooth margins and without internal echogenic foci (TI-RADS 3, mildly suspicious , FNA if >=2.5 cm, annual followup is > =1.5 cm). There is a second 2.45 cm solid isoechoic nodules with smooth margins and without echogenic foci mid left thyroid, also TI RADS 3. There is normal echotexture, echogenicity and vascular flow t hroughout the remainder of the thyroid gland. IMPRESSION: 1. A couple TI RADS 3 left thyroid nodules, the larger 7.6 cm nodule meeting criteria for biopsy whic h would be recommended. Reviewed, dictated and finalized at location A. IMPRESSION: 1. A couple TI RADS 3 left thyroid nodules, the larger 7.6 cm nodule meeting cr iteria for biopsy which would be recommended.
== END 2024-11-23 08:03 | disposition home or self-care (01) ==
PROVIDERS: PCP Nurse Practitioner Family; Visit Provider Internal Medicine
DX: E04.2 Nontoxic multinodular goiter (principal)
CPT/HCPCS: 76536

== ENCOUNTER 2024-12-22 10:01 | Outpatient (CLI) | payer OTHER, SELFPAY ==
--- NOTE | ~2024-12-22 | US_ITS ---
EXAMINATION: US FNA additional, US FNA w image guidance DATE: 12/22/2024 11:08 INDICATION: Thyroid nodules TECHNIQUE: A time-out was performed to verify the patient's name, date of , and procedure to be performed . The procedure and its benefits and risks were discussed with the patient. Risks specifically discus sed included bleeding and infection. The patient understood the risks and agreed to proceed. The neck was prepped and draped in the usual sterile manner. 7 mL 1% lidocaine was used for local anesthesia . Attention was first turned to the larger mass at the inferior left thyroid. 4 passes were made wit h a 25G needle into the lesion. Appropriate needle location was documented with continuous sonograph ic guidance. Attention was then turned to the smaller nodules in the superior left thyroid. In additi onal 4 passes were made with a 25G needle into the lesion with continuous sonographic guidance. A nemo rile bandage was applied. There were no immediate complications. FINDINGS: Grayscale ultrasound images demonstrate biopsy needles advanced into a 7.3 cm mass at the inferior le ft thyroid. Subsequent images demonstrate biopsy needle advanced into a 2.3 cm mass in the superior l eft thyroid. IMPRESSION: 1. Successful ultrasound-guided fine needle aspiration of a 7.3 cm mass at the inferior left thyroid . 2. Successful ultrasound-guided fine-needle aspiration of a 2.3 cm mass in the superior left thyroid. Reviewed, dictated and finalized at location A. IMPRESSION: 1. Successful ultrasound-guided fine needle aspiration of a 7.3 cm mass at the inferior left thyroid. 2. Successful ultrasound-guided fine-needle aspiration of a 2.3 cm mass in the superior left thyroid.
--- OUTSIDE RECORDS SUMMARY | 2024-12-22 10:40 | XMS_ITS | Clinical Summary ---
Author Organization [facility] [email or web address] Address [address] [place] [address] Care Team Providers Care Stock Crane Operator Name Role Phone Barbara Fang MD Primary Care Prov ider Source Comments [facility] [email or web address],non-owned Affiliates and Associated Physician Practices is amultiple site organization consisting of ambulatory clinics and hospital sitesin [place], [place], [place] and [place]. This disclosure is being madepursuant to the Care Everywhere program and may not contain all information available regarding this patient. Last updated 18.[facility] [email or web address] Allergies No known active allergies Medications * Be aware that medications may not be up to date on this document. Alwaysverify current medications with the patient. No known medications Family History Medical History Relation Name Comments Hypertension Mother Relation Name Status Comments Father health hx unkno wn Mother Social History Tobacco Use Types Packs/Day Years Used Date Smoking Tobacco: Every Day Cigarettes 1 10 Tobacco Cessation:Ready to Q uit: No; Counseling Given: No Alcohol Use Standard Drinks/Week Comments No 0 (1 standard drink = 0.6 oz pur e alcohol) Comments Unknown Sex and Gender Information Value Date Recorded Sex Assigned at Not on file Legal Sex Female 5:03 AM ADVICE LINE RN Gender Identity Not on file Sexual Orientation Not on file Last Filed Vital Signs Vital Sign Reading Time Taken Comments Blood Pressure 129/80 10/08/2016 2:39 PM ADVICE LINE RN Pulse 98 10/08/2016 2:39 PM ADVICE LINE RN Temperature 38.1 C (100.6 F) 10/08/2016 2:39 PM ADVICE LINE RN Respiratory Rate 20 10/08/2016 2:39 PM ADVICE LINE RN Oxygen Saturation 98% 10/08/2016 2:39 PM ADVICE LINE RN Inhaled Oxygen Concentration - - Weight 104.3 kg (230 lb) 10/08/2016 2:39 PM ADVICE LINE RN Height 177.8 cm (5' 10 ) 10/08/2016 2:39 PM ADVICE LINE RN Body Mass Index 33 10/08/2016 2:39 PM ADVICE LINE RN Plan of Treatment Health Maintenance Due Date Last Done Comments HIV SCREENING 2005 HEPATITIS C SCREENING 03/17/2008 DTAP/TDAP/TD VACCINES (1 - Tdap) 2009 HEPATITIS B VACCINE (1 of 3 - 19+ 3-dose series) 2009 COVID-19 VACCINE ( - 2023-2 5 season) 2024 DEPRESSION SCREENING 08/04/2024 INFLUENZA VACCINE (Season Ended) 2025 ZOSTER VACCINE (1 of 2) 2040 HIB VACCINE Aged Out No longer eligi ble based on patient's age to complete this topic HPV VACCINE Aged Out No longer eligi ble based on patient's age to complete this topic MENINGOCOCCAL (Group B) VACC INE SHARED DECISION-MAKING Aged Out No longer eligibl e based on patient's age to complete this topic MENINGOCOCCAL GROUPS A/C/Y/W VACCINE Aged Out No longer eligible b ased on patient's age to complete this topic PNEUMOCOCCAL VACCINE Aged Out No long er eligible based on patient's age to complete this topic Insurance [facility] Address: [facility] [id number] [address] [id number] Care Teams Stock Crane Operator Relationship Specialty [place] [id number] [address] PCP - General 12/10/21
--- OUTSIDE RECORDS SUMMARY | 2024-12-22 10:40 | XMS_ITS | Clinical Summary ---
Author Organization [facility] Address [address] [place] [address] Phone Care Team Providers Care Relocation Coordinator Name Role Phone Unavailable Primary Care Provider Unavailabl e Allergies No known active allergies Medications vits15/iron/fol ic/dss ( VIT 68-[id number]-[id number]-D SS ORAL) Take by mouth. Active acetaminophen (TYLENOL) 325 mg tablet Take 2 Tablets (650 mg) by mouth every 6 hours. 30 Tablet 1 05/27/2021 9:30 AM CDT 05/27/2021 Active docusate sodium (COLACE) 100 mg capsule Take 1 Capsule (100 mg) by mouth 2 times daily. 30 Capsule 1 05/27/2021 9:30 AM CDT 05/27/2021 Active ibuprofen (MOTRIN) 600 mg tablet Take 1 Tablet (600 mg) by mouth every 6 hours. 30 Tablet 1 05/27/2021 9:30 AM CDT 05/27/2021 Active oxyCODONE (ROXICODONE) 5 mg tabletIndicatio ns:Mild pre-eclampsia in third trimester Take 1 Tablet (5 mg) by mouth every 8 hours as needed for Severe Pain. Max Daily Amount: 3 tablets 18 Tablet 05/27/2021 9:30 AM CDT 05/27/2021 Active Active Problems Problem Noted Date Diagnosed Date Pre-eclampsia, severe 05/18/2021 Obesity (BMI 30.0-34.9) 05/18/2021 MFM/OBH; Pre-e w/ SF; code white; PLTCS 05/23; b oy 05/18/2021 Gestational diabetes Overview (05/18/2021): diet controlled Immunizations Immunization Administration Dates Next Due (ADACEL/BOOSTRIX)(10 YR UP) TDAP VACCINE, 0.5ML, IM 05/22/2021 (PFIZER)(12 YR UP) COVID-19 VACCINE - EMERGENCY USE AUTHORIZATION, MRNA, [id number](PF) 30 MCG/0.3 ML IM SUSP 05/18/2021 INFLUENZA VACCINE QUADRIVALENT 6 MOS UP PF IM Family History Medical History Relation Name Comments Colon Cancer Father Hypertension Father Cancer Mother skin Hypertension Mother Relation Name Status Comments Father Alive Mother Alive Social History Tobacco Use Types Packs/Day Years Used Date Smoking Tobacco: Former Smokeless Tobacco: Never Alcohol Use Standard Drinks/Week Comments Not Currently 0 (1 standard drink = 0.6 oz pur e alcohol) Comments No Sex and Gender Information Value Date Recorded Sex Assigned at Not on file Legal Sex Female 3:39 PM CDT Gender Identity Not on file Sexual Orientation Not on file Last Filed Vital Signs Vital Sign Reading Time Taken Comments Blood Pressure 134/82 05/27/2021 7:32 AM CDT Pulse 91 05/25/2021 4:08 PM CDT Temperature 36.7 C (98.1 F) 05/27/2021 7:32 AM CDT Respiratory Rate 18 05/27/2021 7:32 AM CDT Oxygen Saturation 100% 05/24/2021 4:55 PM CDT Inhaled Oxygen Concentration - - Weight 114.3 kg (252 lb) 05/18/2021 9:24 AM CDT Height 177.8 cm (5' 10 ) 05/18/2021 9:24 AM CDT Body Mass Index 36.16 05/18/2021 9:24 AM CDT Plan of Treatment Health Maintenance Due Date Last Done Comments HPV/Cotest (21-29) 2011 CERVICAL CANCER SCREENING 2020 HPV/Cotest (30-65) 2020 PAP SMEAR 2020 INFLUENZA VACCINE (#1) 2024 05/27/2021 COVID-19 Vaccine (2 - season) 2024 05/18/2021 DTAP/TDAP/TD VACCINES (7 - Td or Tdap) 05/22/2031 05/22/2021, 07/09/1996, 05/11/1992, Additional history exists HEPATITIS B VACCINES Completed 11/06/2001, 05/28/2001, 04/23/2001 HPV VACCINES Aged Out No longer eligi ble based on patient's age to complete this topic Insurance [facility] [id number] POS II RX [facility] [employer] Advance Directives For more information, please contact: [phone] * Full Code (Latest Code Status on File) Date Activated Date Inactivated Comments 05/23/2021 10:48 PM 05/27/2021 12:47 PM * Full Code Date Activated Date Inactivated Comments 05/22/2021 10:22 AM 05/23/2021 7:45 PM * Full Code Date Activated Date Inactivated Comments 05/18/2021 9:56 AM 05/22/2021 10:22 AM
== END 2024-12-22 10:02 | disposition home or self-care (01) ==
PROVIDERS: PCP Nurse Practitioner Family; Visit Provider Internal Medicine
DX: E04.2 Nontoxic multinodular goiter (principal); E28.2 Polycystic ovarian syndrome; E66.9 Obesity, unspecified; E78.5 Hyperlipidemia, unspecified
CPT/HCPCS: 10005; 10006; 88172; 88173; 88305

== ENCOUNTER 2025-06-01 09:37 | Outpatient (CLI) | payer OTHER, SELFPAY ==
--- OUTSIDE RECORDS SUMMARY | 2025-06-01 10:39 | XMS_ITS | Clinical Summary ---
Author Organization [facility] Address [address] [place] [address] Phone Care Team Providers Care Rn Infusion Name Role Phone Unavailable Primary Care Provider Unavailabl e Allergies No known active allergies Medications vits15/iron/fol ic/dss ( VIT 56-NHDJ-YDARC-D SS ORAL) Take by mouth. Active acetaminophen [...] COVID-19 VACCINE - EMERGENCY USE AUTHORIZATION, MRNA, [id number](PF) 30 MCG/0.3 ML IM SUSP 05/18/2021 INFLUENZA [...] 9:24 AM CDT Height 177.8 cm (5' 10) 05/18/2021 9:24 AM CDT Body Mass Index 36.16 05/18/2021 9:24 AM CDT Plan of Treatment Health Maintenance Due Date Last Done Comments HPV/Cotest (21-29) 2011 HPV VACCINES (1 - 3-dose SCD M series) 2017 CERVICAL CANCER SCREENING 2020 HPV/Cotest (30-65) 2020 PAP SMEAR 2020 INFLUENZA VACCINE (#1) 2025 05/27/2021 COVID-19 Vaccine (2 - 2024-2 6 season) 2025 05/18/2021 DTAP/TDAP/TD VACCINES (7 - T d or Tdap) 05/22/2031 05/22/2021, 07/09/1996, 05/11/1992, Additional history exists HEPATITIS B VACCINES Completed 11/06/2001, 05/28/2001, 04/23/2001 Insurance [facility] [id number] POS II RX [facility] [employer] Advance Directives For more information, please contact: [phone] * Full Code (Latest Code Status on File) Date Activated Date Inactivated Comments 05/23/2021 10:48 PM 05/27/2021 12:47 PM * Full Code Date Activated Date Inactivated Comments 05/22/2021 10:22 AM 05/23/2021 7:45 PM * Full Code Date Activated Date Inactivated Comments 05/18/2021 9:56 AM 05/22/2021 10:22 AM
--- OUTSIDE RECORDS SUMMARY | 2025-06-01 10:39 | XMS_ITS | Clinical Summary ---
Author Organization [facility] [employer] Address [address] [place] [address] Care Team Providers Care Biofuels Plant Construction Worker Name Role Phone Barbara Fang MD Primary Care Prov ider Source Comments [facility],non-owned Affiliates and Associated Physician Practices is amultiple site organization consisting of ambulatory clinics and hospital sitesin [place], [place] and [place]. This disclosure is being madepursuant to the Care Everywhere program and may not contain all information available regarding this patient. Last updated 18.[facility] [employer] Allergies No known active allergies Medications * [...] on file Legal Sex Female 5:03 AM ENGINEHOUSE BRAKEMAN Gender Identity Not on file Sexual Orientation Not on file Last Filed Vital Signs Vital Sign Reading Time Taken Comments Blood Pressure 129/80 10/08/2016 2:39 PM ENGINEHOUSE BRAKEMAN Pulse 98 10/08/2016 2:39 PM ENGINEHOUSE BRAKEMAN Temperature 38.1 C (100.6 F) 10/08/2016 2:39 PM ENGINEHOUSE BRAKEMAN Respiratory Rate 20 10/08/2016 2:39 PM ENGINEHOUSE BRAKEMAN Oxygen Saturation 98% 10/08/2016 2:39 PM ENGINEHOUSE BRAKEMAN Inhaled Oxygen Concentration - - Weight 104.3 kg (230 lb) 10/08/2016 2:39 PM ENGINEHOUSE BRAKEMAN Height 177.8 cm (5' 10) 10/08/2016 2:39 PM ENGINEHOUSE BRAKEMAN Body Mass Index 33 10/08/2016 2:39 PM ENGINEHOUSE BRAKEMAN Plan of Treatment Health Maintenance Due Date Last Done Comments HIV SCREENING 2005 HEPATITIS C SCREENING 03/17/2008 DTAP/TDAP/TD VACCINES (1 - Tdap) 2009 HEPATITIS B VACCINE (1 of 3 - 19+ 3-dose series) 2009 HPV VACCINE (1 - 3-dose SCDM series) 2017 DEPRESSION SCREENING 08/04/2024 COVID-19 VACCINE (1 - 2023-2 5 season) 2025 INFLUENZA VACCINE (#1) 2025 ZOSTER VACCINE (1 of 2) 2040 [...] patient's age to complete this topic Insurance [facility] Care Teams Biofuels Plant Construction Worker Relationship Specialty [place] [address] [address] PCP - General 12/10/21
[2025-06-15 14:12] VITALS: BMI 30.8
--- NOTE | 2025-06-15 14:12 | WPDHOMESLEEP ---
Sleep Study - Home Unattended Date of Study: 06/01/25 Ordering Provider: Corrine Roy APRN Interpreting Provider: Sumi Vásquez DO [place] [facility] Type: Watch PAT Height: 1.78 m Weight: 97.522 kg Body Mass Index: 30.8 Neck Circumference (inches): 16.5 [place]: 8 Reason for Sleep Study snoring, daytime hypersomnia Sleep History The patient is a 35-year-old female that had a sleep study ordered by her primary care for evaluation of sleep apnea. The patient admits to snoring loudly, excessive daytime sleepiness, interruptions in breathing while asleep and trouble maintaining sleep. She does choke or gasp at night. She does have trouble breathing on her back. She does have morning headaches. She does have a dry or sore mouth / throat in the morning. She does have nocturnal heartburn. She urinates twice throughout the night. She does have difficulty falling asleep. She does not have difficulty returning to sleep if she wakes up throughout the night. She denies any hypnotic or sedative use. She denies feeling anxious about sleep. She does feel tired or sleepy during the day. She does feel tired in the morning. She denies having the urge to fall asleep during the day. She denies feeling drowsy while driving. She denies sleep paralysis, cataplexy and hypnagogic/ hypnopompic hallucinations. She does clench or grind her teeth. She denies kicking or jerking her legs excessively. She denies having a restless feeling in her legs. She goes to bed at 11:00 p.m. every night. It takes her 1 hour to fall asleep. She gets 7 hours of sleep on work days and 8 hours on her days off. Her sleep is a little more restorative on days off. She denies any planned naps. She denies dream enactment behavior. She denies sleep walking. She consumes 3-4 cups of caffeinated beverage per day. She denies tobacco and alcohol use. She denies exercising on a regular basis. [facility] Past Medical History Medical History Enlarged thyroid Thyroid disorder Pre-hypertension Personal history of nicotine dependence Hair loss disorder Essential hypertension Amenorrhea, unspecified (05/13/17) Multinodular goiter Chronic fatigue Obesity History of gestational diabetes Preeclampsia Abnormal Pap smear of cervix 11/07/20, LGSIL Polycystic ovarian syndrome Vaginal discharge History of PCOS Surgical History Surgical History H/O LEEP H/O emergency section 05/23/21 for severe pre eclampia, Gest DM and cord prolapse. History of cholecystectomy [place] teeth removed Family History Family History Grandparent Family history of congestive heart failure Mother Hypertension, Onset Age: 49 Social History Social History Smoking packs per day: 0 Smoking cigarettes per day: 0.0 Years smoked: 0 Smoking pack-years: 0.00 Smoking status: Former smoker Tobacco type: e-cigarettes/vaping Second hand tobacco smoke exposure: Yes Alcohol intake: never Substance use: never Substance use type: does not use Do You Feel Safe in your Home?: Yes Lack of Transportation: No Lack of Food: Never True Current Housing: I Have Housing Concerned About Future Housing: No Difficulty Paying Gas/Electric Bills: No Difficulty Paying for Meds: No Currently Unemployed: No Education: Bachelor's Degree Difficulty w/ Childcare or Family Care: No Living arrangements: with family Occupation/Education: occupation Gender identity (if verbalized by the patient): Female Sexual Orientation (if Verbalized by the Patient): Straight or Heterosexual Spiritual care concerns: No Agree to blood products: Yes Medications Home Medications ?Medication ?Instructions ?Recorded ?Confirmed ?Type metformin 500 mg tablet,extended 500 mg PO DAILY #90 tabs 08/18/24 05/10/25 Rx release 24 hr norethindrone (contraceptive) 0.35 0.35 mg PO DAILY #84 tabs 08/18/24 05/10/25 Rx mg tablet ([place]uma) spironolactone 100 mg tablet 100 mg PO DAILY #90 tabs 08/18/24 05/10/25 Rx cholecalciferol (vitamin D3) 1,250 1,250 mcg PO WEEKLY #4 caps 01/04/25 05/10/25 Rx mcg (50,000 unit) capsule escitalopram oxalate 5 mg tablet See Rx Instructions .Route 03/07/25 05/10/25 Rx .COMPLEX #90 tabs Sleep Procedure The sleep study was completed using ProteoSenseT a technically adequate device with seven channels: peripheral arterial tone, actigraphy, body position, snore, respiratory movement, pulse oximetry, sleep staging, and heart rate. Prior to using the device, the patient received verbal and written instructions for its application and was provided with the help desk phone number for additional telephonic instruction with 24-hour availability of qualified personnel to answer questions. The study was scored using CMS guidelines. Sleep Architecture The total recording time is 8 hrs, 11 min. The total sleep time is 7 hrs, 16 min. Sleep latency is 17 minutes. REM latency is 91 minutes. The patient had 4 episodes of waking. Sleep architecture shows 18.2% deep sleep, 65.4% light sleep, and (as % Total Sleep Time) showed NREM (Light 65.4%; Deep 18.2%), and a 16.4% stage REM. The patient spent 10.6% of total sleep time in the supine position. Sleep efficiency was 88.80. Respiratory Analysis The overall AHI (pAHI 4%:) is 4.3. The overall AHI (pAHI 3%:) is 8.1. The central AHI is 0.0. The AHI was 6.9 in NREM and 14.3 in REM sleep. The AHI was 29.9 in Supine and 5.6 in Non-supine sleep. Percent of Yasmani Cheney respirations is 0.0. Oximetry Data The oxygen desaturation index (FRANCA 4%:) is 2.6. The mean saturation is 96%, and the lowest saturation is 91%. Time spent with saturation < 88% is 0.0 minutes. Snoring Profile Snoring average intensity is 42 dB. The patient snored above 45 decibels for 21.0 minutes, 4.8% of sleep time. Cardiac Profile The average pulse rate is 70 beats per minutes. The lowest pulse rate is 51 bpm. The highest pulse rate reported is 100 bpm. Atrial fibrillation was not detected. Premature beats occur <0.1 per minute. Assessment and Plan Assessment and Plan (1) ERIN (obstructive sleep apnea): Code(s): G47.33 - Obstructive sleep apnea (adult) (pediatric) Status: Acute Assessment and Plan: Per AASM guidelines (pAHI 3%), the patient had an overall AHI of 8.1 with desaturation down to 91%. This is consistent with mild sleep apnea. Due to the patient's hypertension, she qualifies for treatment. I recommend that the patient be prescribed AutoPAP 5-15 cm H2O, CPAP mask/filters/tubing and heated humidity. This should be used with all episodes of sleep.? Compliance should be reviewed within 31-90 days of starting therapy for usage greater than 4 hours per night greater than 70% of the nights. The patient should be asked about symptoms such as?excessive daytime sleepiness, quality of sleep, decreased nocturia, increased?mental functioning such as memory, mood, and concentration. Per CMS guidelines (pAHI 4%), the patient had an overall AHI of 4.3 with desaturation down to 91%. This is not consistent with sleep-disordered breathing. If the patient's insurance company only recognizes CMS guidelines, the patient does not qualify for treatment. I would then recommend that the patient have a split study with the use of a hypnotic to ensure we obtain enough sleep data. Data The data obtained during this sleep study is adequate for interpretation. Certification This sleep study has been reviewed by a board certified sleep medicine physician.
== END 2025-06-02 13:34 | disposition home or self-care (01) ==
PROVIDERS: PCP Nurse Practitioner Family; Visit Provider Nurse Practitioner Family
DX: G47.30 Sleep apnea, unspecified (principal); G47.33 Obstructive sleep apnea (adult) (pediatric)
CPT/HCPCS: 95800